=== PATIENT | female | born 1995 | race American Indian/Alaskan Native ===

== ENCOUNTER 2020-06-02 12:00 | Outpatient (CLI) | payer OTHER ==
[2020-06-02] MEDS ORDERED: PRENATAL CAPLE1 EAC1 PO (12:56)
[2020-06-02] MEDS ORDERED: FOLIC ACID20 MG PO (12:57)
[2020-06-02] MEDS ORDERED: TYLENOL325 MG PO (12:57)
== END 2020-06-03 11:00 | disposition home or self-care (01) ==
LOC: OBS/DEL 12:00
PROVIDERS: ATTEND Obstetrics & Gynecology
DX: O26.893 Other specified pregnancy related conditions, third trimester (principal); R50.9 Fever, unspecified; Z20.828 Contact with and (suspected) exposure to other viral communicable diseases

== ENCOUNTER 2020-08-12 14:30 | Inpatient (IN) | payer OTHER ==
[~2020-08-12] VITALS: Ht 149.9 cm; Wt 77.6 kg
[~2020-08-12 14:30] MED LIST: FOLIC ACID20 MG PO; PRENATAL CAPLE1 EAC1 PO; TYLENOL325 MG PO
== END 2020-08-15 13:31 | disposition home or self-care (01) | DRG 807 ==
LOC: LDR 08-13 09:54 → OB/GYN 08-13 09:54 → LDR 08-13 15:34 → OB/GYN 08-13 18:09
PROVIDERS: ADMIT Obstetrics & Gynecology; ATTEND Obstetrics & Gynecology
PROC: 10E0XZZ Delivery of Products of Conception, External Approach (ICD-10-PCS; principal; 2020-08-13)
PROC: 4A1HXFZ Monitoring of Products of Conception, Cardiac Rhythm, External Approach (ICD-10-PCS; 2020-08-13)
DX: O80 Encounter for full-term uncomplicated delivery (principal); Z37.0 Single live birth; Z3A.38 38 weeks gestation of pregnancy; Z20.822 Contact with and (suspected) exposure to COVID-19